=== PATIENT | male | born 1965 | race Caucasian/White ===

== ENCOUNTER 2021-10-18 21:46 | Emergency (ER) | payer BC ==
[~2021-10-18] VITALS: Ht 188 cm; Wt 95.7 kg
[2021-10-18 21:46] VITALS: BP 150/65
--- NOTE | 2021-10-18 22:00 | NUR ---
TO BED VIA W/CSENG FROM HOME WITH C/O LOW BLOOD SUGAR, 30MG/DL
--- NOTE | 2021-10-18 22:19 | NUR ---
DR ROWLEY AT BEDSIDE
--- NOTE | 2021-10-18 22:24 | NUR ---
ROTARY DRILL RIG OPERATOR AT BEDSIDE
--- NOTE | 2021-10-18 22:29 | NUR ---
56 Y/O MALE BIBA FROM HOME WITH LOW BLOOD SUGAR 30 MG/DL. GIVEN D10 ENROUTE BY PARAMEDICS. BS 255MG/DL UP[ON ARRIVAL TO ER. A/OX4, GCS-15; AMBULATORY, UNSTEADY; UNLABORED BREATHING, SPEAKING IN FULL SENTENCES; SKIN PINK/WARM/DRY; DENIES N/V, COUGH, FEVER, SOB, OR CP. HX: DM TYPE 1, HTN, HIGH CHOLESTEROL NKA MED: ATORVASTATIN, LISINOPRIL, HUMALOG/INSULIN
[2021-10-18 22:40] LABS: BASOPHILS % (AUTO) 0.5 % (0.0-2.0); EOSINOPHILS # (AUTO) 0.1 K/uL (0-0.4); EOSINOPHILS % (AUTO) 1.1 % (0.0-4.0); HEMATOCRIT 40.6 % (36-52); HEMOGLOBIN 13.7 g/dL (12.0-18.0); LYMPHOCYTES # (AUTO) 1.5 K/uL (2.0-11.5); LYMPHOCYTES % (AUTO) 22.9 % (20.5-51.1); MEAN CORPUSCULAR HEMOGLOBIN 33 pg (27-31); MEAN CORPUSCULAR HGB CONC 34 g/dL (33-37); MEAN CORPUSCULAR VOLUME 97.1 fL (80-94); MONOCYTES # (AUTO) 0.5 K/uL (0.8-1.0); MONOCYTES % (AUTO) 8.6 % (1.7-9.3); NEUTROPHILS # (AUTO) 4.2 K/uL (1.8-7.7); NEUTROPHILS % (AUTO) 66.9 % (42.2-75.2); PLATELET COUNT (AUTO) 223 K/uL (140-450); RED BLOOD CELL COUNT(AUTO) 4.18 MIL/uL (4.20-6.10); RED CELL DISTRIBUTION WIDTH 13.6 % (11.6-13.7); WHITE BLOOD COUNT (AUTO) 6.3 K/uL (4.8-10.8)
[2021-10-18 23:02] LABS: ALBUMIN 4.4 g/dL (3.4-5.0); ANION GAP 16.1 (8-16); CARBON DIOXIDE 27.5 mmol/L (21-32); CREATININE 0.9 mg/dL (0.6-1.3); POTASSIUM 4.6 mmol/L (3.5-5.1); TOTAL BILIRUBIN 0.3 mg/dL (0.0-1.0)
--- NOTE | 2021-10-18 23:26 | NUR ---
ERMD AT BEDSIDE DISCUSSING RESULTS WITH PT
[2021-10-18 23:50] VITALS: BP 148/62
--- NOTE | 2021-10-18 23:50 | NUR ---
Patient discharged with v/s stable. Written and verbal after care instructions given and explained. Patient verbalized understanding. Ambulatory with steady gait. All questions addressed prior to discharge. Advised to follow up with PMD. VSS, A/OX4, UNLABORED BREATHING, AMBULATORY, AND CALM DEMEANOR.
== END 2021-10-18 23:50 | disposition home or self-care (01) ==
LOC: MED 21:46
DX: E10.649 Type 1 diabetes mellitus with hypoglycemia without coma (principal); Z79.4 Long term (current) use of insulin; Z79.899 Other long term (current) drug therapy
CPT/HCPCS: 36415; 80053; 83605; 85025; 99283

== ENCOUNTER 2022-06-28 19:54 | Emergency (ER) | payer BC ==
[~2022-06-28] VITALS: Ht 175.3 cm; Wt 90.7 kg
[2022-06-28 20:02] VITALS: BP 183/90
--- NOTE | 2022-06-28 20:02 | NUR ---
XAVI ALSTNO. TAKEN TO BED 12.
--- NOTE | 2022-06-28 20:02 | NUR ---
found by roomate the patient altered at home and pt has insulin pump with him. Paramediac gave d50 and after checking the initial 40 blood sugar. hx htn dm
--- NOTE | 2022-06-28 20:20 | NUR ---
pt blood suggar is 287 upon accucheck
[2022-06-28] MEDS ORDERED: DEXT 5% / NACL 0.45% 1,000 ML IV ONE (20:25)
[2022-06-28 20:39] LABS: BASOPHILS % (AUTO) 0.4 % (0.0-2.0); EOSINOPHILS % (AUTO) 0.5 % (0.0-4.0); HEMATOCRIT 38.2 % (36-52); HEMOGLOBIN 13.2 g/dL (12.0-18.0); LYMPHOCYTES # (AUTO) 1.2 K/uL (2.0-11.5); LYMPHOCYTES % (AUTO) 11.7 % (20.5-51.1); MEAN CORPUSCULAR HEMOGLOBIN 33 pg (27-31); MEAN CORPUSCULAR HGB CONC 35 g/dL (33-37); MEAN CORPUSCULAR VOLUME 95.3 fL (80-94); MONOCYTES # (AUTO) 0.7 K/uL (0.8-1.0); MONOCYTES % (AUTO) 7.1 % (1.7-9.3); NEUTROPHILS % (AUTO) 80.3 % (42.2-75.2); PLATELET COUNT (AUTO) 208 K/uL (140-450); RED BLOOD CELL COUNT(AUTO) 4.01 MIL/uL (4.20-6.10); RED CELL DISTRIBUTION WIDTH 13.3 % (11.6-13.7)
[2022-06-28 20:58] LABS: ALBUMIN 3.9 g/dL (3.4-5.0); ANION GAP 11.8 (8-16); CARBON DIOXIDE 28.5 mmol/L (21-32); POTASSIUM 4.3 mmol/L (3.5-5.1); TOTAL BILIRUBIN 0.5 mg/dL (0.0-1.0)
--- NOTE | 2022-06-28 21:00 | NUR ---
pt is alerted and oriented x4, and patient is resting.
[2022-06-28 21:57] LABS: APPEARANCE,URINE CLEAR (CLEAR); BILIRUBIN,URINE NEGATIVE (NEGATIVE); BLOOD, URINE NEGATIVE (NEGATIVE); COLOR,URINE YELLOW (YELLOW); LEUKOCYTE ESTERASE ,URINE NEGATIVE (NEGATIVE); NITRITE, URINE NEGATIVE (NEGATIVE); UGLUCOSE 2+ (NEGATIVE)
[2022-06-28 23:57] VITALS: BP 141/64
--- NOTE | 2022-06-29 00:04 | NUR ---
Patient discharged with v/s stable. Written and verbal after care instructions given and explained. Patient verbalized understanding. Ambulatory with steady gait. All questions addressed prior to discharge. Advised to follow up with PMD. pt left with his belongings.
== END 2022-06-29 00:04 | disposition home or self-care (01) ==
LOC: MED 19:54
DX: E11.649 Type 2 diabetes mellitus with hypoglycemia without coma (principal); R55 Syncope and collapse; I10 Essential (primary) hypertension; F17.210 Nicotine dependence, cigarettes, uncomplicated; Z72.89 Other problems related to lifestyle; Z79.4 Long term (current) use of insulin; Z79.899 Other long term (current) drug therapy
CPT/HCPCS: 36415; 80053; 81003; 82150; 83690; 85025; 93005; 96365; 96366; 99284